=== PATIENT | female | born 1940 | race Two or more races ===

== ENCOUNTER 2019-12-28 11:08 | Day surgery (SDC) | payer MEDICARE, MEDICAID ==
[~2019-12-28] VITALS: Ht 157.5 cm; Wt 64.6 kg
[~2019-12-28 11:08] MED LIST: AMLO10TA8 PO; ATORVASTATIN; DOCU100C33 PO; GABA300C10 PO; LINA5TAB PO; LISI10TA2 PO; LISI5TAB7 PO; METH500T11 PO; OMEP20CA20 PO; OXYC5CAP2 PO; POLY17PO5 PO
[2019-12-28] MEDS ORDERED: CHLORHEXIDINE 15 ML UDC ONE (11:33)
[2019-12-28 11:37] VITALS: BP 118/71
[2019-12-28] MEDS ORDERED: LACTATED RINGERS 1,000 ML IV SCH (11:50)
[2019-12-28] MEDS ORDERED: CHLORHEXIDINE 15 ML UDC MM STA (11:50)
[2019-12-28] MEDS ORDERED: HYDROmorphone 2 MG/ML, 1ML IVPush PRN (12:00)
[2019-12-28] MEDS ORDERED: ONDANSETRON 2MG/ML, 2ML IV PRN (12:00)
[2019-12-28] MEDS ORDERED: PROMETHAZINE 25 MG/ML, 1ML IV PRN (12:00)
[2019-12-28] MEDS ORDERED: ACETAMINOPHEN 325 MG TABLET PO PRN (12:00)
[2019-12-28] MEDS ORDERED: hydrALAzine 20 MG/ML, 1ML IV PRN (12:00)
[2019-12-28] MEDS ORDERED: FENTANYL PF 100 MCG/2ML IV PRN (12:00)
[2019-12-28] MEDS ORDERED: OXYcodone 5 MG/5 ML ORAL.SOL UDC PO PRN (12:00)
[2019-12-28] MEDS ORDERED: LABETALOL 5MG/ML, 20ML IV PRN (12:00)
[2019-12-28] MEDS ORDERED: MORPHINE SULFATE 4 MG/ML, 1ML IVPush PRN (12:00)
[2019-12-28] MEDS ORDERED: MIDAZOLAM 1 MG/ML, 2ML ONE (12:40)
[2019-12-28] MEDS ORDERED: FENTANYL PF 250 MCG/5ML ONE (12:41)
[2019-12-28] MEDS ORDERED: ONDANSETRON 2MG/ML, 2ML ONE ×2 (13:10→13:18)
[2019-12-28] MEDS ORDERED: PROPOFOL 10 MG/ML, 50ML ONE (13:10)
[2019-12-28] MEDS ORDERED: EPINEPHRINE 1 MG/ML, 30ML ONE (13:10)
[2019-12-28] MEDS ORDERED: SUCCINYLCHOLINE 20 MG/ML, 10ML ONE (13:10)
[2019-12-28] MEDS ORDERED: PROPOFOL 10 MG/ML, 20ML ONE (13:10)
[2019-12-28] MEDS ORDERED: DEXAMETHASONE 4 MG/ML, 1ML ONE ×2 (13:10→13:18)
[2019-12-28] MEDS ORDERED: CEFAZOLIN 1,000 MG ONE (13:19)
[2019-12-28] MEDS ORDERED: EPHEDRINE 50 MG/ML, 1ML ONE (13:23)
[2019-12-28] MEDS ORDERED: ACETAMINOPHEN 650 MG/20.3 ML UDC ONE (14:17)
[2019-12-28] MEDS ORDERED: OXYcodone 5 MG/5 ML ORAL.SOL UDC ONE (14:18)
[2019-12-28] MEDS ORDERED: FENTANYL PF 100 MCG/2ML ONE (14:34)
== END 2019-12-28 18:15 | disposition home or self-care (01) ==
LOC: OUT 11:08
PROVIDERS: ATTEND Orthopaedic Surgery
DX: Z47.2 Encounter for removal of internal fixation device (principal); E11.9 Type 2 diabetes mellitus without complications; I10 Essential (primary) hypertension; K21.9 Gastro-esophageal reflux disease without esophagitis; M19.90 Unspecified osteoarthritis, unspecified site; Z79.899 Other long term (current) drug therapy; Z88.0 Allergy status to penicillin
CPT/HCPCS: 20694; 73600; 82962; J0171; J0330; J0690; J1100; J2250; J2405; J2704; J3010; J7120; 76000